=== PATIENT | female | born 1960 | race Caucasian/White ===

== ENCOUNTER → 2016-10-18 | Outpatient (CLI) | payer OTHER ==
[~2016-10-18] MED LIST: ALIGN4 MG PO; ATORVASTATIN CA20 MG PO; BENTYL20 MG PO; JENTADUETO 2.51 EAC2 PO; KEPPRA1000 MG PO; OMEPRAZOLE40 M1 PO; ZESTORETIC 20-1 EAC1 PO
== END | disposition home or self-care (01) ==
LOC: RES 09-13 09:00
DX: J45.909 Unspecified asthma, uncomplicated (principal)
CPT/HCPCS: 94060; 94727; 94729